=== PATIENT | female | born 1985 | race African-American/Black ===

== ENCOUNTER 2016-12-07 17:00 | Emergency (ER) | payer OTHER ==
[~2016-12-07] VITALS: Ht 165.1 cm; Wt 100.7 kg
[2016-12-07] MEDS ORDERED: SODIUM CHLORIDE 0.9% 1000ML 1,000 ML IV STA ×2 (17:17)
[2016-12-07] MEDS ORDERED: ACETAMINOPHEN 500 MG TAB PO STA (17:22)
[2016-12-07] MEDS ORDERED: IBUPROFEN 600 MG TAB PO STA (17:22)
[2016-12-07 17:29] VITALS: O2SAT 98; Ht 165.1 cm; Wt 100.7 kg
[2016-12-07 17:39] LABS: BASO % 0.1 %; BASO ABS # 0.01 K/uL (0-0.2); COMPLETE YES; HEMATOCRIT 38.6 % (37-47); IG% 0.3 %; LYMPH % 6.5 %; LYMPH ABS # 0.99 K/uL (1.2-3.4); MEAN CELL VOLUME 89.8 fL (80-100); MEAN CORPUSCULAR HEMOGLOBIN 31.4 pg (25-34); MEAN PLATELET VOLUME 11.9 fL (7.4-10.4); MONO % 6.9 %; NEUT % 86.2 %; PLATELET COUNT 229 K/uL (130-400); WHITE BLOOD COUNT 15.15 K/uL (4.8-10.8)
[2016-12-07 17:48] LABS: INR 1.1 (0.9-1.1); PARTIAL THROMBOPLASTIN RATIO 1.1; PROTHROMBIN TIME (PATIENT) 11.5 SECONDS (9.0-12.0)
--- NOTE | 2016-12-07 17:53 | DIAGNOSTIC IMAGING REPORT ---
SINGLE VIEW CHEST CLINICAL HISTORY: Generalized weakness. Flulike symptoms. FINDINGS: An AP, portable, upright chest radiograph is obtained. No prior studies are available for comparison at the time of dictation. The cardiomediastinal silhouette is unremarkable. The lungs and pleural spaces are clear. No pneumothorax is seen. The bony thorax is grossly intact. IMPRESSION: No active disease in the chest. Electronically signed by: Ham Gaming M.D. 12/07/2016 5:52 PM Dictated Date/Time: 12/07/2016 5:52 PM
[2016-12-07 17:56] LABS: ALT/SGPT 38 U/L (12-78); BLOOD UREA NITROGEN 8 mg/dl (7-18); BUN/CREATININE RATIO 8.4 (10-20); CALCIUM 8.2 mg/dl (8.5-10.1); CARBON DIOXIDE 27 mmol/L (21-32); CHLORIDE 102 mmol/L (98-107); CREATININE 0.94 mg/dl (0.60-1.20); GLUCOSE 97 mg/dl (70-99); MAGNESIUM 1.9 mg/dl (1.8-2.4); POTASSIUM 3.4 mmol/L (3.5-5.1); SODIUM 136 mmol/L (136-145)
[2016-12-07 18:07] LABS: ALKALINE PHOSPHATASE 80 U/L (45-117); AST/SGOT 22 U/L (15-37); THYROID STIMULATING HORMONE 0.449 uIu/ml (0.300-4.500)
[2016-12-07 18:48] LABS: URINE APPEARANCE CLEAR (CLEAR); URINE BILIRUBIN NEG (NEG); URINE COLOR YELLOW; URINE EPITHELIAL CELL AUTO >30 /lpf (0-5); URINE NITRITE NEG (NEG); URINE SPECIFIC GRAVITY 1.022 (1.000-1.030); UROBILINOGEN NEG (NEG)
[2016-12-07 18:55] LABS: MANUAL MICROSCOPIC REQUIRED? NO; REVIEW REQ? YES; SULFASALICYLIC ACID NEG (NEG)
[2016-12-07 19:38] VITALS: TEMP 37.2
[2016-12-07] MEDS ORDERED: OSELTAMIVIR PHOSPHATE 75 MG CAP PO STA (19:49)
[2016-12-07] MEDS ORDERED: OSEL75CA12 PO (19:55)
--- NOTE | 2016-12-07 20:14 | EMERGENCY ROOM VISIT NOTE ---
History Report prepared by Dinora: Guevara Perla Under the Supervision of: Dr. Rory Bland M.D. First contact with patient: 17:15 Chief Complaint: FLU LIKE SX Stated Complaint: FLU SYMPTOMS History of Present Illness The patient is a 31 year old female who presents to the Emergency Room with complaints of persistent flu-like symptoms since yesterday afternoon. The symptoms started with a sore throat and cough. She then developed a high fever, pounding headache, and generalized body aches. The patient had NyQuil at 1030 this morning. She has some ringing in her ears but does not have ear pain. She does not have any specific sick contacts but does work at a [employer]. Patient denies LOC, chills, diaphoresis, visual changes, neck pain, chest pain, breathing difficulties, nausea, vomiting, abdominal pain, back pain, melena, hematochezia, urinary symptoms, numbness, weakness, lymphadenopathy, leg pain or swelling, rash, or other complaints. The patient just returned from vacation yesterday. She follows up with dr. Clements, Family Practitioner. Source of History: patient Onset: yesterday afternoon Position: other (global) Quality: other (flu-like symptoms) Timing: other (persistent) Associated Symptoms: + cough, + fevers, + headache, + sorethroat Review of Systems See HPI for pertinent positives and negatives. A total of ten systems were reviewed and were otherwise negative. Past Medical & Surgical Medical Problems: (1) No known health problems Family History No pertinent family history Social History Smoking Status: Never Smoker Alcohol Use: none Occupation Status: employed Current/Historical Medications Scheduled Oseltamivir (Tamiflu), 75 MG PO BID Allergies Coded Allergies: No Known Allergies (Verified Allergy, Unknown, NKDA, 06/04/08) Physical Exam Vital Signs Date Time Temp Pulse Resp B/P Pulse Ox O2 Delivery O2 Flow Rate FiO2 12/07/16 19:38 37.2 12/07/16 18:28 38.3 121 18 98 Room Air 12/07/16 17:52 125 12/07/16 17:46 124 16 111/77 99 Room Air 12/07/16 17:29 98 Room Air 12/07/16 17:11 39.3 131 20 152/136 98 Room Air Physical Exam GENERAL: Awake, alert, mildly ill appearing, tired appearing, no distress HEAD: Normocephalic, atraumatic. No edema. EYES: Normal conjunctiva. Sclera non-icteric. EARS: Right TM normal. Left TM normal. NOSE: Mild congestion. OROPHARYNX: Lips, tongue, and mucosa unremarkable. No erythema or exudate. NECK: Supple. No nuchal rigidity. FROM. No adenopathy. Negative jolt accentuation test. RESPIRATORY: CTA bilaterally. No wheezes rales or rhonchi. CARDIAC: Tachycardic rate, normal rhythm. ABDOMEN: Soft, non distended. No tenderness to palpation. NEURO: Normal sensorium. SKIN: No rash or jaundice noted Medical Decision & Procedures ER Provider Diagnostic Interpretation: X-ray: Per my interpretation, radiologist review. SINGLE VIEW CHEST CLINICAL HISTORY: Generalized weakness. Flulike symptoms. FINDINGS: An AP, portable, upright chest radiograph is obtained. No prior studies are available for comparison at the time of dictation. The cardiomediastinal silhouette is unremarkable. The lungs and pleural spaces are clear. No pneumothorax is seen. The bony thorax is grossly intact. IMPRESSION: No active disease in the chest. Electronically signed by: Ham Gaming M.D. 12/07/2016 5:52 PM Dictated Date/Time: 12/07/2016 5:52 PM Laboratory Results 12/07/16 17:26 Red Blood Count 4.30, Mean Corpuscular Volume 89.8, Mean Corpuscular Hemoglobin 31.4, Mean Corpuscular Hemoglobin Concent 35.0, Mean Platelet Volume 11.9, Neutrophils (%) (Auto) 86.2, Lymphocytes (%) (Auto) 6.5, Monocytes (%) (Auto) 6.9, Eosinophils (%) (Auto) 0.0, Basophils (%) (Auto) 0.1, Neutrophils # (Auto) 13.06, Lymphocytes # (Auto) 0.99, Monocytes # (Auto) 1.04, Eosinophils # (Auto) 0.00, Basophils # (Auto) 0.01 12/07/16 17:26 Test 12/07/16 17:24 12/07/16 17:26 12/07/16 18:29 Influenza Type A Antigen Neg for Influ A (NEG) Influenza Type B Antigen Neg for Influ B (NEG) White Blood Count 15.15 K/uL (4.8-10.8) Red Blood Count 4.30 M/uL (4.2-5.4) Hemoglobin 13.5 g/dL (12.0-16.0) Hematocrit 38.6 % (37-47) Mean Corpuscular Volume 89.8 fL (80-100) Mean Corpuscular Hemoglobin 31.4 pg (25-34) Mean Corpuscular Hemoglobin Concent 35.0 g/dl (32-36) Platelet Count 229 K/uL (130-400) Mean Platelet Volume 11.9 fL (7.4-10.4) Neutrophils (%) (Auto) 86.2 % Lymphocytes (%) (Auto) 6.5 % Monocytes (%) (Auto) 6.9 % Eosinophils (%) (Auto) 0.0 % Basophils (%) (Auto) 0.1 % Neutrophils # (Auto) 13.06 K/uL (1.4-6.5) Lymphocytes # (Auto) 0.99 K/uL (1.2-3.4) Monocytes # (Auto) 1.04 K/uL (0.11-0.59) Eosinophils # (Auto) 0.00 K/uL (0-0.5) Basophils # (Auto) 0.01 K/uL (0-0.2) RDW Standard Deviation 44.7 fL (36.4-46.3) RDW Coefficient of Variation 13.7 % (11.5-14.5) Immature Granulocyte % (Auto) 0.3 % Immature Granulocyte # (Auto) 0.05 K/uL (0.00-0.02) Prothrombin Time 11.5 SECONDS (9.0-12.0) Prothromb Time International Ratio 1.1 (0.9-1.1) Activated Partial Thromboplast Time 29.2 SECONDS (21.0-31.0) Partial Thromboplastin Ratio 1.1 Anion Gap 7.0 mmol/L (3-11) Est Creatinine Clear Calc Drug Dose 102.9 ml/min Estimated GFR () 94.4 Estimated GFR (Non- 81.4 BUN/Creatinine Ratio 8.4 (10-20) Calcium Level 8.2 mg/dl (8.5-10.1) Magnesium Level 1.9 mg/dl (1.8-2.4) Total Bilirubin 0.4 mg/dl (0.2-1) Direct Bilirubin 0.1 mg/dl (0-0.2) Aspartate Amino Transf (AST/SGOT) 22 U/L (15-37) Alanine Aminotransferase (ALT/SGPT) 38 U/L (12-78) Alkaline Phosphatase 80 U/L (45-117) Troponin I < 0.015 ng/ml (0-0.045) Total Protein 8.5 gm/dl (6.4-8.2) Albumin 3.2 gm/dl (3.4-5.0) Lipase 146 U/L (73-393) Thyroid Stimulating Hormone (TSH) 0.449 uIu/ml (0.300-4.500) Urine Color YELLOW Urine Appearance CLEAR (CLEAR) Urine pH 8.0 (4.5-7.5) Urine Specific [place] 1.022 (1.000-1.030) Urine Protein NEG (NEG) Urine Glucose (UA) NEG (NEG) Urine Ketones NEG (NEG) Urine Occult Blood NEG (NEG) Urine Nitrite NEG (NEG) Urine Bilirubin NEG (NEG) Urine Urobilinogen NEG (NEG) Urine Leukocyte Esterase TRACE (NEG) Urine WBC (Auto) 1-5 /hpf (0-5) Urine RBC (Auto) 5-10 /hpf (0-4) Urine Hyaline Casts (Auto) 1-5 /lpf (0-5) Urine Epithelial Cells (Auto) >30 /lpf (0-5) Urine Bacteria (Auto) NEG (NEG) Urine Renal Epithelial Cells /lpf (0-5) Laboratory results reviewed by me Medications Administered Medications (Trade) Dose Ordered Sig/Shawna Route Start Time Stop Time Status Last Admin Dose Admin Sodium Chloride 1,000 ml @ 125 mls/hr Q8H STAT IV 12/07/16 17:17 12/08/16 01:16 12/07/16 18:50 125 MLS/HR Sodium Chloride (Nss 1000ml) 1,000 ml @ 999 mls/hr Q1H1M STAT IV 12/07/16 17:17 12/07/16 18:17 DC 12/07/16 17:33 999 MLS/HR Acetaminophen (Tylenol Tab) 1,000 mg NOW STAT PO 12/07/16 17:22 12/07/16 17:23 DC 12/07/16 17:33 1,000 MG Ibuprofen (Motrin Tab) 600 mg NOW STAT PO 12/07/16 17:22 12/07/16 17:23 DC 12/07/16 17:32 600 MG ED Course 171: NSS 1000 ml @ 999 mls/hr, NSS 1000 ml @ 125 mls/hr. 1721: The patient was evaluated in room C10. A complete history and physical exam was performed. 1721: Tylenol 1000 mg PP. 1944: Reassessed the patient. Discussed the discharge instructions with her. She verbalized agreement and understanding. The patient is ready for discharge. 1948: Tamiflu 75 mg PO. Medical Decision Triage Nursing notes reviewed. The patient's presentation and history were concerning for flulike symptoms. Etiologies such as influenza, viral syndrome, otitis, pharyngitis, pneumonia, urinary tract infection, sepsis, bacteremia, meningitis, as well as others were entertained. Patient was evaluated. She exhibited signs of a flulike illness. She did not have any nuchal rigidity or meningeal findings. The patient was hydrated. She was given Tylenol and ibuprofen as she had a significant fever. The patient had a mild leukocytosis on CBC. Chemistry panel was unremarkable. Rapid flu was negative. Urinalysis was unremarkable. Chest x-ray revealed no evidence of pneumonia. On reassessment the patient was feeling significantly better. Her fever resolved. Given the frequency of flu and issues with false negative rapid flu testing I am going to elect to treat her with Tamiflu rather than have her wait the extended period and repeat her flu testing with the PCR. Her symptoms are about 24 hours in duration. 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 The patient was in agreement. She felt comfortable with conservative management and treatment the Tamiflu. I gave my usual and customary discussion regarding this issue. I discussed use of ibuprofen and acetaminophen. By the evaluation outlined above other emergent etiologies such as those listed in the differential, as well as others, were deemed relatively unlikely. The patient was informed about the findings as listed above. All questions were answered and she was pleased with the treatment. Return instructions were outlined and the patient was discharged in stable condition. The patient was referred to her PCP for follow-up for a recheck of the current condition. The chart was completed utilizing [employer] voice recognition software. Grammatical errors, random word insertions, pronoun errors, and incomplete sentences are an occasional consequence of this system due to software limitations, ambient noise, and hardware issues. Any formal questions or concerns about the content, text, or information contained within the body of this dictation should be directly addressed to the physician for clarification. Impression Primary Impression: Influenza-like symptoms Scribe Attestation The scribe's documentation has been prepared under my direction and personally reviewed by me in its entirety. I confirm that the note above accurately reflects all work, treatment, procedures, and medical decision making performed by me. Departure Information Dispostion Home / Self-Care Prescriptions Oseltamivir (Tamiflu) 75 Mg Cap 75 MG PO BID, #9 CAP Prov: Rory Bland MD 12/07/16 Referrals Romeo Clements M.D. (MEDICAL) (PCP) Forms HOME CARE DOCUMENTATION FORM, IMPORTANT VISIT INFORMATION Patient Instructions My [facility] Additional Instructions Tamiflu 75 mg: Take one pill twice daily for 5 days. Review the package insert for all your medications. This is necessary as important health information is provided for your benefit and current care. Acetaminophen(Tylenol) may be used for fever or pain. Use 1000mg every six hours as needed. Avoid using more than 4000mg in a 24 hour period. (AND/OR) Ibuprofen(Motrin, Advil) may be used for fever or pain. Use 600mg every six hours as needed. Take with food. Avoid using more than 2400mg in a 24 hour period. Do not use 2400mg per day for more than three consecutive days without physician direction. Prolonged inappropriate use can lead to stomach upset or ulcers. Rest and drink plenty of fluids. Controlling your fever with Tylenol and Ibuprofen as above will make you feel better. Wash your hands after nose blowing, sneezing, or coughing. Most germs are spread through contact, therefore improper hygiene may result in your close contacts and loved ones becoming ill just like you. Return to the ER for severe headache, neck stiffness, chest pain, difficulty breathing, fevers, vomiting, worsening of your condition, or as needed. Follow up with your primary physician this week for a recheck of your current condition.
[2016-12-07 20:16] VITALS: BP 115/75; PULSE 102; O2SAT 98
== END 2016-12-07 20:22 | disposition home or self-care (01) ==
LOC: C.EDC 17:51
DX: R09.89 Other specified symptoms and signs involving the circulatory and respiratory systems (principal)

== ENCOUNTER 2016-12-09 17:23 | Emergency (ER) | payer OTHER ==
[~2016-12-09] VITALS: Ht 165.1 cm; Wt 100.2 kg
[~2016-12-09 17:23] MED LIST: OSEL75CA12 PO
[2016-12-09 17:29] VITALS: TEMP 37.6; Ht 165.1 cm; Wt 100.2 kg
[2016-12-09] MEDS ORDERED: AMOXICILLIN 250 MG CAP PO STA (19:12)
[2016-12-09] MEDS ORDERED: PRED50TA PO (19:22)
[2016-12-09] MEDS ORDERED: AMOX500C3 PO (19:22)
--- NOTE | 2016-12-09 19:22 | EMERGENCY ROOM VISIT NOTE ---
ED Visit Note First contact with patient: 18:15 Chief Complaint: Flu History of Present Illness: Patient is a 31-year-old female who presents to the emergency department for evaluation of her sore throat and ongoing flulike symptoms. She reports that she was seen in this facility recently for the same symptoms. She was placed on Tamiflu. She reports mild fevers still. She reports her worsening symptoms have been sore throat at this point. She is able to swallow. She is having difficulty sleeping secondary to sore throat. She rates her current discomfort as a 7/10. She is tried Motrin Tylenol orally for symptoms. She denies any headaches, dizziness, lightheadedness, nausea, vomiting, chest pain, palpitations, short of breath, or hemoptysis. Medications: Reviewed and discussed with the patient. Allergies: No known allergies. PMH: No pertinent past medical history. SHx: Patient is a 31-year-old female who lives locally. ROS: All pertinent positive and negative review of systems are appropriately documented in the History of Present Illness. Physical Exam: VITAL SIGNS - Vital signs and nursing notes were reviewed. GENERAL - Well nourished, well developed 31-year-old female in no acute distress. Pt communicates well with provider and answers questions appropriately. SKIN - Without rash. HEAD - NC/AT with no obvious deformities. EYES - PERRL with EOMI bilaterally. Sclera without injection. Palpebral conjunctiva pink and moist. EARS - No deformities of external structures noted on gross examination bilaterally. No pain elicited with palpation of the tragus bilaterally. External auditory canals without discharge or otorrhea. Tympanic membranes pearly ibarra without retraction or bulging. No fluid or purulent material visualized behind the TM. Handle of malleus, umbo, cone of light, pars tensa/ flaccid all easily visualized. NOSE - Midline and without cyanosis. No purulent drainage noted. Nasal mucosa without mucus discharge. MOUTH/OROPHARYNX - Without perioral cyanosis. Buccal mucosa pink and moist and without leukoplakia. Tongue midline with no palate deviation. Moderate tonsillar hypertrophy appreciated bilaterally. No kissing tonsils. No trismus. With erythema and whitish exudates noted. Good dentition noted. No muffled voice. NECK - Neck with FROM. Supple to palpation. No lymphadenopathy noted. No nuchal rigidity. LUNGS - Chest wall symmetric without accessory muscle use, intercostals retractions, or central cyanosis. Normal vesicular breath sounds CTA B/L. No wheezes, rales, or rhonchi appreciated. CARDIAC - RRR with S1/S2. No murmur, rubs, or gallops appreciated. ABDOMEN - Abdominal contour obese without pulsations or visible masses. BS normoactive all four quadrants. No tenderness, palpable masses, hepatosplenomegaly, or ascites noted. ED Course: Patient was seen and evaluate by myself. Previous emergency department visit note was reviewed. Rapid strep is obtained. Rapid strep was found to be negative. The patient was offered repeat labs as well as IV fluids and pain medication which she declines at this time. I did have a lengthy conversation with the patient regarding her ongoing symptoms. She was recently seen here and had an extensive workup performed. She is on Tamiflu. She has a low-grade fever today. She declines IV fluids or further evaluation. She was treated with amoxicillin and prednisone for a tonsillitis. She'll follow-up with her primary care provider. She will return for changing or worsening symptoms. Patient discharged home in good condition. In the evaluation and treatment of this patient, the following differential diagnoses were considered: Retropharyngeal abscess, peritonsillar abscess, mono , strep, meningitis, encephalitis, pneumonia, bronchitis, amongst others. Impression: Tonsillitis, Fever Discharge Instructions: You were seen in the emergency department for your sore throat. You were prescribed Amoxicillin to be taken as prescribed. This is an antibiotic. All antibiotics have the potential to cause diarrhea. Stop this medication and contact a medical provider if you were to develop any significant adverse side effects including: wheezing, shortness of breath, passing out, vomiting, or a diffuse rash. Always take antibiotics as directed and COMPLETE the ENTIRE course regardless of the improvement of your symptoms. You have been prescribed Prednisone 50 mg to be taken orally once a day for the next 4 days. This is an anti-inflammatory medicine to be used to help minimize your symptoms. You should take the COMPLETE course of the medication. For pain and fever control, you can use the following [id number] medicines (if >12 yo): - Regular strength (325mg/tab) Tylenol (acetaminophen) 2 tabs every 4-6 hours as needed. Do not exceed 12 tablets in a 24 hour period. Avoid taking more than 4 grams (4000 mg) of Tylenol per day. This includes any other sources of acetaminophen you may take on a regular basis. - Regular strength (200 mg/tab) Advil (ibuprofen) 1-2 tabs every 4-6 hours as needed. Do not exceed a dose of 3200 mg per day. - For best results, alternate dosing of Tylenol and Advil. In addition to your prescribed medications, you can also use the following home remedies: - Warm salt-water gargles 3 times per day can soothe your throat and help to fight infection. - Warm tea with honey can soothe your throat. Return to the emergency department if your symptoms persist or worsen over the next 2-3 days despite treatment course outlined above. Return to the emergency department if you develop the following symptoms of: inability to swallow solids , liquids, or drool; excessive wheezing or inability to catch your breath; or intractable fever or pain. Follow up with your primary care provider in 2-3 days from today's emergency department visit. Problem List Medical Problems: (1) No known health problems Status: Chronic Current/Historical Medications Scheduled Amoxicillin (Amoxil), 500 MG PO TID Oseltamivir (Tamiflu), 75 MG PO BID Prednisone (Prednisone), 50 MG PO DAILY Allergies Coded Allergies: No Known Allergies (Verified , NKDA, 12/09/16) Vital Signs Date Time Temp Pulse Resp B/P Pulse Ox O2 Delivery O2 Flow Rate FiO2 12/09/16 19:33 92 18 112/74 100 Room Air 12/09/16 17:29 37.6 108 18 118/74 99 Room Air Medications Administered Medications (Trade) Dose Ordered Sig/Shawna Route Start Time Stop Time Status Last Admin Dose Admin Amoxicillin (Amoxil Cap) 500 mg NOW STAT PO 12/09/16 19:12 12/09/16 19:13 DC 12/09/16 19:19 500 MG Prednisone (PredniSONE TAB) 60 mg NOW STAT PO 12/09/16 19:12 12/09/16 19:13 DC 12/09/16 19:19 60 MG Departure Information Impression Primary Impression: Tonsillitis Dispostion Home / Self-Care Condition GOOD Prescriptions Prednisone (Prednisone) 50 Mg Tab 50 MG PO DAILY for 4 Days, #4 TAB Prov: Jsoe Del Castillo, PAWillisC 12/09/16 Amoxicillin (AMOXIL) 500 Mg Cap 500 MG PO TID for 10 Days, #30 CAP Prov: Jose Del Castillo PA-C 12/09/16 Referrals Romeo Clements M.D. (MEDICAL) (PCP) Patient Instructions My [facility] Additional Instructions You were seen in the emergency department for your sore throat. You were prescribed Amoxicillin to be taken as prescribed. This is an antibiotic. All antibiotics have the potential to cause diarrhea. Stop this medication and contact a medical provider if you were to develop any significant adverse side effects including: wheezing, shortness of breath, passing out, vomiting, or a diffuse rash. Always take antibiotics as directed and COMPLETE the ENTIRE course regardless of the improvement of your symptoms. You have been prescribed Prednisone 50 mg to be taken orally once a day for the next 4 days. This is an anti-inflammatory medicine to be used to help minimize your symptoms. You should take the COMPLETE course of the medication. For pain and fever control, you can use the following [id number] medicines (if >12 yo): - Regular strength (325mg/tab) Tylenol (acetaminophen) 2 tabs every 4-6 hours as needed. Do not exceed 12 tablets in a 24 hour period. Avoid taking more than 4 grams (4000 mg) of Tylenol per day. This includes any other sources of acetaminophen you may take on a regular basis. - Regular strength (200 mg/tab) Advil (ibuprofen) 1-2 tabs every 4-6 hours as needed. Do not exceed a dose of 3200 mg per day. - For best results, alternate dosing of Tylenol and Advil. In addition to your prescribed medications, you can also use the following home remedies: - Warm salt-water gargles 3 times per day can soothe your throat and help to fight infection. - Warm tea with honey can soothe your throat. Return to the emergency department if your symptoms persist or worsen over the next 2-3 days despite treatment course outlined above. Return to the emergency department if you develop the following symptoms of: inability to swallow solids , liquids, or drool; excessive wheezing or inability to catch your breath; or intractable fever or pain. Follow up with your primary care provider in 2-3 days from today's emergency department visit.
[2016-12-09 19:33] VITALS: BP 112/74; PULSE 92; O2SAT 100
== END 2016-12-09 19:41 | disposition home or self-care (01) ==
LOC: C.EDB 17:24
DX: J03.90 Acute tonsillitis, unspecified (principal); R50.9 Fever, unspecified